=== PATIENT | female | born 1980 | race Caucasian/White ===

== ENCOUNTER → 2017-06-01 | Outpatient (CLI) | payer MEDICARE, OTHER ==
[~2017-06-01] VITALS: Ht 162.6 cm; Wt 93.0 kg
[~2017-06-01] MED LIST: ACYC800T PO; ALPR0.254 PO; CRAN1CAP11 PO; CYCL10TA2 PO; DIPH25CA58 PO; FENO160T PO; GABA-586 PO; LISI1TAB3 PO; MECL25TA3 PO; MELA3TAB2 PO; MELO15TA23 PO; METF500T4 PO; NAPR500T8 PO; OXYM15MI4 NS; POTA10TA31 PO; TRAM50TA PO
[2017-06-01 08:49] VITALS: BP 135/71
--- NOTE | 2017-06-01 10:25 | RAD ---
Ultrasound-guided right thyroid biopsy, 06/01/2017: History: Bilateral thyroid nodules Previous imaging demonstrated a dominant solid nodule in the right lobe of the gland. Under local anesthesia, aseptic conditions and sonographic guidance a 25-gauge needle was passed into this nodule via an anteromedial approach. 4 separate aspirates were obtained from different portions of the nodule with the materials sent to pathology for evaluation. Hemostasis was then obtained. Ultrasound-guided left thyroid biopsy, 06/01/2017: Previous imaging demonstrated a dominant lobulated solid nodule in the left lobe of the gland. Under local anesthesia, aseptic conditions and sonographic guidance a 25-gauge needle was passed into this nodule via an anteromedial approach. 4 separate aspirates were obtained from different portions of the nodule with the materials sent to pathology for evaluation. Hemostasis was then obtained. The patient tolerated these procedures well and left the department in good condition. The pathology results are pending.
--- NOTE | 2017-06-04 16:26 | PATHOLOGY ---
CYTOPATHOLOGY REPORT CLINICAL HISTORY: Thyroid nodules. SPECIMEN(S) RECEIVED: A.Fine needle aspiration, Right thyroid nodule 3.2 cm B.Fine needle aspiration, Left thyroid nodule 3.7 cm FINAL DIAGNOSIS: A. Right thyroid nodule fine needle aspiration, smears and cell block: - Pana category: Benign - Clusters of follicular epithelial cells, few macrophages, and scant colloid identified B. Left thyroid nodule fine needle aspiration, smears and cell block: - Clusters of follicular epithelial cells, few macrophages, and colloid identified. (JPM:pit; 06/04/2017) COMMENT: The findings are consistent with adenomatous nodules. There are no cytoarchitectural features of papillary carcinoma. (JPM:pit; 06/04/2017) PATHOLOGIST: Homer Gee M.D. REPORT ELECTRONICALLY SIGNED BY: Homer Gee M.D. DATE/TIME: 06/04/2017 16:25 GROSS PATHOLOGY: A. Fine needle aspiration, Right thyroid 3.2 cm: The specimen is labeled "Robert Hamilton" and consists of two fixed slides, two air dried slides, two H and E slides. Thirty mL of clear pink fluid in fixative from the needle rinse is also submitted and one ThinPrep slide and a cell block were prepared from this material. Also received is the RNARetain vial which will be held for molecular studies if needed. B. Fine needle aspiration, Left thyroid 3.7 cm: The specimen is labeled "Robert Hamilton" and consists of two fixed slides, two air dried slides, two H and E slides. Thirty mL of clear red fluid in fixative from the needle rinse is also submitted and one ThinPrep slide and a cell block were prepared from this material. Also received is the RNARetain vial which will be held for molecular studies if needed. (clt 06.01.2017) [employer] ENGINEER(S): OPAL Rodriguez([facility]) INITIAL CPT CODE(S): A; 61032, 72374 B; 06731, 84920 Professional services performed by [facility] at [address] [address] Technical services performed by [facility] at [address] [place] [address], [address], [place] [address]. PATIENT: ROBERT HAMILTON /AGE: 301/21/1980 (Age: 37) SEX: F PATIENT #: [id number] ALT CASE #: SPECIMEN COLLECTION DATE: 06/01/2017 SPECIMEN RECEIVED DATE: 06/01/2017 [facility] [address], [address] [place] [address] PHONE: [phone] DIRECTOR: Fadi Thomas M.D. * * * END OF REPORT * * *
== END | disposition home or self-care (01) ==
LOC: US 08:20
PROVIDERS: ATTEND Family Medicine
DX: E04.1 Nontoxic single thyroid nodule (principal)
CPT/HCPCS: 10022; 76942; 88173; 88305